=== PATIENT | female | born 1940 | race Two or more races ===

== ENCOUNTER 2017-11-09 23:41 | Outpatient (CLI) | END 2017-11-09 23:42 | disposition short-term general hospital (02) | LOC: AMBL 23:41 | PROVIDERS: ATTEND Emergency Medicine | DX: R20.0 Anesthesia of skin (principal); R29.810 Facial weakness; I10 Essential (primary) hypertension; Z79.899 Other long term (current) drug therapy ==

== ENCOUNTER 2018-04-07 06:46 | Day surgery (SDC) | payer OTHER ==
[2018-04-07] MEDS: LIDOCAINE 1% 20 ML MDV ID STA (07:22)
[2018-04-07 07:29] VITALS: TEMP 97.6
[2018-04-07] MEDS ORDERED: VERSED ONE (08:40)
[2018-04-07] MEDS ORDERED: DIPRIVAN 20 ML VIAL IVP ONE (08:40)
[2018-04-07 10:19] VITALS: BP 114/66
--- NOTE | 2018-04-08 13:01 | OP ---
PROCEDURE: COLONOSCOPY TO THE CECUM. ENDOSCOPIST: Bryon MERCHANT M.D. INDICATION: FAMILY HISTORY OF COLON CANCER AND POLYPS. INSTRUMENT: [employer]-190. MEDICATION: PER ANESTHESIA. DATE OF LAST COLONOSCOPY- 5 YEARS PREVIOUS TO THIS EXAM. PROCEDURE: The patient was positioned for colonoscopy. The digital rectal exam was negative. The colonoscope was inserted through the anus and advanced to the cecum. The cecum was identified using the ileocecal valve and the appendiceal orifice as landmarks. The scope was slowly withdrawn through an adequately prepped colon. Diverticulosis was noted in the left colon. Retroflex exam was otherwise normal. Withdrawal time 10 minutes and 16 seconds. PLAN: 1. Suggest repeat as needed. cc: Robin Crabtree M.D. [address] [place] [id number]. [place] [address] [facility]
== END 2018-04-07 10:00 | disposition home or self-care (01) ==
LOC: SURG 06:46
PROVIDERS: ATTEND Internal Medicine Gastroenterology
DX: Z12.11 Encounter for screening for malignant neoplasm of colon (principal)
CPT/HCPCS: 00812; G0121